=== PATIENT | male | born 1960 | race Hispanic/Latino ===

== ENCOUNTER 2017-10-16 15:43 | Emergency (ER) | payer SELFPAY ==
--- NOTE | 2017-10-16 17:19 | RAD ---
THREE VIEW RIGHT WRIST 10/16/17 INDICATION: Edema, pain. No prior comparison. FINDINGS: There is a mildly displaced intra-articular distal radial fracture. Overlying soft tissue swelling is present. There is a minimally displaced ulnar styloid avulsion. IMPRESSION: Mildly displaced intra-articular distal radial fracture. Ulnar styloid avulsion. POS: [facility]
[2017-10-16] MEDS ORDERED: Ketorolac Tromethamine 60 MG/2 ML VIAL ONE (17:23)
== END 2017-10-16 17:30 | disposition home or self-care (01) ==
LOC: ERS 15:43
DX: S52.611A Displaced fracture of right ulna styloid process, initial encounter for closed fracture (principal); S52.571A Other intraarticular fracture of lower end of right radius, initial encounter for closed fracture; W10.9XXA Fall (on) (from) unspecified stairs and steps, initial encounter
CPT/HCPCS: 29125; 96372; J1885

== ENCOUNTER 2024-06-16 13:24 | Emergency (ER) | payer SELFPAY ==
[2024-06-16 15:27] LABS: #Basophils 0.07 10x3/uL (0.0-0.2); %Basophils 0.6 % (0.0-1.0); %Eosinophils 2.9 % (0.0-10.0); %Lymphocytes 22.3 % (21.0-51.0); %Monocytes 9.6 % (0.0-10.0); %Neutrophils 64.3 % (42.0-75.0); Hematocrit 38.3 % (42.0-52.0); Hemoglobin 11.2 g/dL (14.0-18.0); Mean Corpuscular HGB CONC 29.2 g/dL (32.0-36.0); Mean Corpuscular Hemoglobin 21.1 pg (27.0-31.0); Mean Platelet Volume 10.4 fL (7.4-10.4); Platelet Count 373 10x3/uL (130-400); RBC Distribution Width 21.5 % (11.5-14.5); Red Blood Cell (RBC) Count 5.32 mill/uL (4.70-6.10)
[2024-06-16 15:31] LABS: ALT (SGPT) 11 U/L (8-55); AST (SGOT) 10 U/L (5-34); Albumin 3.8 g/dL (3.4-4.8); Alkaline Phosphatase 63 U/L (40-110); Anion Gap 13 mmol/L (10-20); BUN (Urea Nitrogen) 16 mg/dL (8.4-25.7); Bilirubin, Total 0.7 mg/dL (0.2-1.2); Calc. Creatinine Clearance 0 mL/min (70-130); Calcium 9.4 mg/dL (7.8-10.44); Carbon Dioxide 22 mmol/L (23-31); Chloride 110 mmol/L (98-107); Estimated GFR 85; Globulin 3.1 g/dL (2.4-3.5); Glucose 64 mg/dL (80-115); Potassium 3.9 mmol/L (3.5-5.1); Protein, Total 6.9 g/dL (5.8-8.1); Sodium 141 mmol/L (136-145)
[2024-06-16 15:35] LABS: Troponin I Less than 0.010 ng/mL (< 0.028)
[2024-06-16 16:14] LABS: Anisocytosis MODERATE=16-30 cells HPF (0-5); Ovalocytes SLIGHT = 2-5 cells HPF (0-1); Platelet Adequacy Comment Platelets Normal; Polychromasia SLIGHT = 2-3 cells HPF (0-2); Schistocytes SLIGHT = 2-5 cells HPF (0-1); Tear Drops SLIGHT = 2-5 cells HPF (0-1)
[2024-06-16] MEDS ORDERED: Acetaminophen 500 MG TAB ONE (16:39)
[2024-06-16] MEDS ORDERED: diphenhydrAMINE 50 MG/ML VIAL ONE (16:40)
[2024-06-16] MEDS ORDERED: Meclizine HCl 25 MG TAB ONE (16:40)
[2024-06-16] MEDS ORDERED: Metoclopramide HCl 10 MG (2 mL) VIAL ONE (16:40)
== END 2024-06-16 18:08 | disposition home or self-care (01) ==
LOC: ERS 13:24
DX: R42 Dizziness and giddiness (principal); R51.9 Headache, unspecified; R29.700 NIHSS score 0; I10 Essential (primary) hypertension
CPT/HCPCS: 36415; 70450; 71045; 80053; 84484; 85025; 93005; 96374; J1200; J2765